=== PATIENT | female | born 1955 | race Caucasian/White ===

== ENCOUNTER → 2017-05-06 | Outpatient (CLI) | payer OTHER ==
[~2017-05-06] MED LIST: ASPI81TA82 PO; CARB25TA12 PO; CARB50TA3 PO; CLON0.5T3 PO; DIPH25CA5 PO; DOCU50CA2 PO; FLX10 PO; IBUP-1428 PO; MELO15TA3 PO; OXYCODONE HCL PO; PANT1TAB48 PO; PRMVC PV; TRIA0.1C55 TOP
--- NOTE | 2017-05-07 07:42 | MAMMOGRAPHY REPORT ---
BILATERAL DIGITAL SCREENING MAMMOGRAM TOMOSYNTHESIS WITH CAD: 05/06/2017 CLINICAL HISTORY: Routine screening. Patient has no complaints. TECHNIQUE: Breast tomosynthesis in addition to standard 2D mammography was performed. Current study was also evaluated with a Computer Aided Detection (CAD) system. COMPARISON: Comparison is made to exams dated: 05/03/2016 mammogram, 04/28/2015 mammogram, 04/27/2014 mammogram, 04/22/2013 mammogram, 04/16/2012 mammogram, and 04/11/2011 mammogram - [facility]. BREAST COMPOSITION: The tissue of both breasts is heterogeneously dense, which may obscure small mas ses. FINDINGS: There is a stable grouping of punctate microcalcifications in the upper outer quadrant of the right breast, and a few benign rim calcification scattered in the right breast. No new suspicious mass, architectural distortion or cluster of microcalcifications is seen bilaterally. IMPRESSION: ACR BI-RADS CATEGORY 2: BENIGN There is no mammographic evidence of malignancy. A 1 year screening mammogram is recommended. The pa tient will receive written notification of the results. Approximately 10% of breast cancers are not detected with mammography. A negative mammographic report should not delay biopsy if a clinically suggestive mass is present. Ragini Hurtado M.D. ay/:05/06/2017 17:21:28 Knitting Supervisor: Geovani Neri M, [facility] letter sent: Normal 1/2 BI-RADS Code: ACR BI-RADS Category 2: Benign
== END | disposition home or self-care (01) ==
LOC: C.MAMM 09:23
PROVIDERS: ATTEND Family Medicine
DX: Z12.31 Encounter for screening mammogram for malignant neoplasm of breast (principal)